=== PATIENT | male | born 1965 | race Hispanic/Latino ===

== ENCOUNTER 2018-03-29 09:05 | Emergency (ER) | payer SELFPAY ==
[2018-03-29 09:10] VITALS: BMI 41.1
[2018-03-29 09:12] VITALS: PULSE 76
[2018-03-29 09:16] VITALS: O2SAT 98
--- NOTE | 2018-03-29 09:32 | ED PDOC ---
HPI: Skin/Bite Injury Time Seen by Provider: 03/29/18 09:22 Chief Complaint (Nursing): Abnormal Skin Integrity Chief Complaint (Provider): rash History Per: Patient History/Exam Limitations: no limitations Onset/Duration Of Symptoms: Days (x3) Current Symptoms Are (Timing): Still Present Additional Complaint(s): César Slater is a 52 year old male, with no significant past medical history, who presents to the emergency department for evaluation of painful rash under right breast onset for x3 days. Patient reports a previous history of shingles with similar pain and appearance. He denies any fever, chills or other medical complaints. PMD: None provided. Past Medical History Reviewed: Historical Data, Nursing Documentation, Vital Signs Vital Signs: Last Vital Signs Temp 97.8 F 03/29/18 09:10 Pulse 76 03/29/18 09:10 Resp 17 03/29/18 09:10 BP 164/104 H 03/29/18 09:10 Pulse Ox 98 03/29/18 09:15 - Medical History Other PMH: shingles - Surgical History Surgical History: No Surg Hx - Family History Family History: States: Unknown Family Hx - Home Medications Home Medications: Ambulatory Orders Medication Instructions Recorded oxyCODONE/Acetaminophen [Percocet 1 ea PO Q8 #6 tab 03/29/18 5/325 mg Tab] valACYclovir [Valtrex] 1 gm PO Q8 #30 tab 03/29/18 - Allergies Allergies/Adverse Reactions: Allergies Allergy/AdvReac Type Severity Reaction Status Date / Time No Known Allergies Allergy Verified 03/29/18 09:14 Review of Systems ROS Statement: Except As Marked, All Systems Reviewed And Found Negative Constitutional: Negative for: Fever, Chills Skin: Positive for: Rash (painful under right breast) Physical Exam - Reviewed Nursing Documentation Reviewed: Yes Vital Signs Reviewed: Yes - Physical Exam Appears: Positive for: No Acute Distress Head Exam: Positive for: ATRAUMATIC, NORMAL INSPECTION, NORMOCEPHALIC Skin: Positive for: Normal Color, Warm, Dry, Rash (erythematous vesicular rash in dermatomal pattern to right side. Does not cross midline. No known evidence of cellulitis) Eye Exam: Positive for: Normal appearance, EOMI, PERRL Neck: Positive for: Normal, Painless ROM Cardiovascular/Chest: Positive for: Regular Rate, Rhythm. Negative for: Murmur Respiratory: Positive for: Normal Breath Sounds. Negative for: Respiratory Distress Gastrointestinal/Abdominal: Positive for: Normal Exam, Soft. Negative for: Tenderness Back: Positive for: Normal Inspection. Negative for: Vertebral Tenderness Extremity: Positive for: Normal ROM (upper and lower extremities). Negative for: Deformity, Swelling Neurologic/Psych: Positive for: Alert, Oriented - ECG O2 Sat by Pulse Oximetry: 98 (RA) Pulse Ox Interpretation: Normal Medical Decision Making Medical Decision Making: Time: 09:22 Initial Plan: --Reevaluation ----- Scribe Attestation: Documented by Pierre Sidhu, acting as a scribe for Sterling Peguero MD. Provider Scribe Attestation: All medical record entries made by the Scribe were at my direction and personally dictated by me. I have reviewed the chart and agree that the record accurately reflects my personal performance of the history, physical exam, medical decision making, and the department course for this patient. I have also personally directed, reviewed, and agree with the discharge instructions and disposition. Disposition - Clinical Impression Clinical Impression: Shingles - Patient ED Disposition Is Patient to be Admitted: No Counseled Patient/Family Regarding: Diagnosis, Need For Followup, Rx Given - Disposition Referrals: Peggy Garza MD [Medical Doctor] - Disposition: Routine/Home Disposition Time: 10:01 Condition: FAIR Prescriptions: oxyCODONE/Acetaminophen [Percocet 5/325 mg Tab] 1 ea PO Q8 #6 tab valACYclovir [Valtrex] 1 gm PO Q8 #30 tab Instructions: Tyrone Forms: [employer] (Indonesian)
[2018-03-29 10:04] VITALS: BP 160/90; RESP 18; TEMP 97.5
== END 2018-03-29 10:05 | disposition home or self-care (01) ==
LOC: H.ER 09:05
DX: B02.9 Zoster without complications (principal)